=== PATIENT | male | born 1940 | race African-American/Black ===

== ENCOUNTER 2016-11-18 21:40 | Emergency (ER) | payer MEDICARE, MEDICAID ==
--- NOTE | 2016-11-18 22:13 | ER Document Report ---
ED GI/ - General Mode of Arrival: Medic Information source: Patient - HPI Patient complains to provider of: Dysuria, Flank pain - left Onset: This afternoon Location: Left flank Associated symptoms: Other - see above <NASIM LAGUNAS - Last Filed: 11/19/16 00:13> <NITISHLAMARDAHIANA MARITZA - Last Filed: 11/19/16 03:18> - General Chief Complaint: Urinary Problem Stated Complaint: LEFT FLANK PAIN Notes: 76 year old male with history of dementia presents to the ED via EMS from [facility] complaining of left side flank pain and dysuria that started today. Patient states that he is currently not in any pain. Patient denies fever or abdominal pain. A comprehensive HPI was unobtainable secondary to the patient's status. (NASIM LAGUNAS) Past Medical History - General Information source: Patient - Social History Smoking Status: Unknown if Ever Smoked Family History: Reviewed & Not Pertinent Psychiatric Medical History: Reports: Hx Dementia <NASIM LAGUNAS - Last Filed: 11/19/16 00:13> Review of Systems - Review of Systems Constitutional: No symptoms reported. denies: Fever EENT: No symptoms reported Cardiovascular: No symptoms reported Respiratory: No symptoms reported Gastrointestinal: No symptoms reported. denies: Abdominal pain Genitourinary: See HPI, Dysuria, Flank pain - left Male Genitourinary: No symptoms reported Musculoskeletal: No symptoms reported Skin: No symptoms reported Hematologic/Lymphatic: No symptoms reported Neurological/Psychological: No symptoms reported -: Yes All other systems reviewed and negative <NASIM LAGUNAS - Last Filed: 11/19/16 00:13> Physical Exam - General General appearance: Alert In distress: None - HEENT Head: Normocephalic, Atraumatic Eyes: Normal Extraocular movements intact: Yes Pupils: PERRL - Respiratory Respiratory status: No respiratory distress Breath sounds: Normal - Cardiovascular Rhythm: Regular Heart sounds: Normal auscultation - Abdominal Inspection: Normal - Back Back: CVA tenderness - Left CVA tenderness to palpation - Extremities General upper extremity: Normal inspection, Nontender, Normal color, Normal ROM General lower extremity: Normal inspection, Nontender, Normal color, Normal ROM - Neurological Neuro grossly intact: Yes Cognition: Normal - at baseline Orientation: AAOx4 Juan Coma Scale Eye Opening: Spontaneous Juan Coma Scale Verbal: Oriented Juan Coma Scale Motor: Obeys Commands [place] Coma Scale Total: 15 Speech: Normal - Psychological Associated symptoms: Normal affect, Normal mood - Skin Skin Temperature: Warm Skin Moisture: Dry Skin Color: Normal <NASIM LAGUNAS - Last Filed: 11/19/16 00:13> <DAHIANA BASURTO - Last Filed: 11/19/16 03:18> - Vital signs Vitals: Temp Pulse Resp BP Pulse Ox 98.1 F 69 18 146/67 H 99 11/18/16 21:46 11/18/16 21:46 11/18/16 21:46 11/18/16 21:46 11/18/16 21:46 (NASIM LAGUNAS) (DAHIANA BASURTO) Course - Laboratory Result Diagrams: 11/18/16 23:01 11/18/16 23:01 <NASIM LAGUNAS - Last Filed: 11/19/16 00:13> - Laboratory Result Diagrams: 11/18/16 23:01 11/18/16 23:01 - Diagnostic Test Radiology reviewed: Reports reviewed <DAHIANA BASURTO - Last Filed: 11/19/16 03:18> - Re-evaluation Re-evalutation: 11/19/16 Patient has no complaints for me in the emergency department. Patient has no acute findings on blood work or imaging. Patient will be discharged back to his residence. And is to follow-up with his primary. Stable for discharge. (DAHIANA BASURTO) - Vital Signs Vital signs: Temp Pulse Resp BP Pulse Ox 97.3 F 61 16 136/75 H 97 11/19/16 02:16 11/19/16 02:16 11/19/16 02:16 11/19/16 02:16 11/19/16 02:16 (NASIM LAGUNAS) (DAHIANA BASURTO) - Laboratory Laboratory results interpreted by me: 11/18/16 11/18/16 23:01 23:01 RBC 3.66 L Hgb 11.3 L Hct 34.8 L RDW 14.5 H Monocytes % 15.6 H BUN 35 H Creatinine 1.48 H Est GFR ( Amer) 56 L Est GFR (Non-Af Amer) 46 L Glucose 116 H (DAHIANA BASURTO) Discharge <NASIM LAGUNAS - Last Filed: 11/19/16 00:13> <DAHIANA BASURTO - Last Filed: 11/19/16 03:18> - Discharge Clinical Impression: Side pain Condition: Stable Disposition: HOME, SELF-CARE Additional Instructions: Blood work and urine appeared normal tonight. Please follow-up with your doctor this week. Referrals: STEPHANIE CANDELARIA PA-C [Primary Care Provider] - Follow up as needed Scribe Attestation: 11/19/16 03:18 I personally performed the services described in the documentation, reviewed and edited the documentation which was dictated to the scribe in my presence, and it accurately records my words and actions. (DAHIANA BASURTO) Scribe Documentation - Scribe Written by Scribe:: Aries Lutz, 11/18/2016 23:14 acting as scribe for :: Josselyn <NASIM LAGUNAS - Last Filed: 11/19/16 00:13>
[2016-11-18 23:12] LABS: ABSOLUTE EOSINOPHILS # (AUTO) 0.1 10^3/uL (0.0-0.6); ABSOLUTE LYMPHOCYTES (AUTO) 1.4 10^3/uL (0.5-4.7); ABSOLUTE NEUT (AUTO) 3.7 10^3/uL (1.7-8.2); BASOPHILS % (AUTO) 0.5 % (0-2); EOSINOPHILS % (AUTO) 2.4 % (0-6); HEMATOCRIT 34.8 % (37.9-51.0); HEMOGLOBIN 11.3 g/dL (13.5-17.0); HGB HCT DIFFERENCE -0.9; LYMPHOCYTES % (AUTO) 22.4 % (13-45); MEAN CORPUSCULAR HEMOGLOBIN 30.9 pg (27.0-33.4); MEAN CORPUSCULAR HGB CONC 32.5 g/dL (32.0-36.0); MEAN CORPUSCULAR VOLUME 95 fl (80-97); MONOCYTES % (AUTO) 15.6 % (3-13); RED BLOOD COUNT 3.66 10^6/uL (4.35-5.55); RED CELL DISTRIBUTION WIDTH 14.5 % (11.5-14.0); SEGMENTED NEUTROPHILS % (AUTO) 59.1 % (42-78); WHITE BLOOD COUNT 6.2 10^3/uL (4.0-10.5)
[2016-11-18 23:28] LABS: ALANINE AMINOTRANSFERASE 23 U/L (21-72); ALBUMIN 3.8 g/dL (3.5-5.0); ALKALINE PHOSPHATASE 98 U/L (38-126); ANION GAP 10 (5-19); ASPARTATE AMINO TRANSFERASE 19 U/L (17-59); BILIRUBIN,TOTAL 0.4 mg/dL (0.2-1.3); BLOOD UREA NITROGEN 35 mg/dL (7-20); CARBON DIOXIDE 30 mmol/L (22-30); CHLORIDE 100 mmol/L (98-107); CREATININE RESULT 1.48 mg/dL (0.52-1.25); GLUCOSE 116 mg/dL (75-110); POTASSIUM 4.1 mmol/L (3.6-5.0); SODIUM 140.1 mmol/L (137-145); TOTAL PROTEIN 7.3 g/dL (6.3-8.2)
[2016-11-18 23:51] LABS: APPEARANCE,URINE CLEAR; BILIRUBIN,URINE NEGATIVE (NEGATIVE); GLUCOSE, URINE NEGATIVE (NEGATIVE); KETONES,URINE NEGATIVE (NEGATIVE); LEUKOCYTE ESTERASE,URINE NEGATIVE (NEGATIVE); NITRITE,URINE NEGATIVE (NEGATIVE); PROTEIN,URINE NEGATIVE (NEGATIVE); URINE SPECIFIC GRAVITY 1.011; UROBILINOGEN,URINE NEGATIVE mg/dL (<2.0)
[2016-11-19] MEDS ORDERED: NORMAL SALINE 1000 ML 500 ML IV ONE (00:10)
[2016-11-19 02:18] VITALS: BP 136/75
== END 2016-11-19 02:48 | disposition home or self-care (01) ==
LOC: ER 21:40
DX: R10.9 Unspecified abdominal pain (principal); R39.198 Other difficulties with micturition
CPT/HCPCS: 99284; 96360; 51701; 36415; 85025; 80053; 81001; 71020; J7030